=== PATIENT | male | born 1930 | race Caucasian/White ===

== ENCOUNTER 2017-06-19 05:41 | Day surgery (SDC) | payer MEDICARE, OTHER ==
[2017-06-19] MEDS ORDERED: Midazolam 1 MG/ML 2 ML SDV IV ONE ×4 (05:42→07:14)
[2017-06-19] MEDS ORDERED: fentaNYL 100 MCG/2 ML SDV IV ONE ×3 (05:42→07:12)
[2017-06-19] MEDS ORDERED: Sodium Chloride 0.9% 10 ML Syringe FLUSH PRN (06:00)
[2017-06-19] MEDS ORDERED: Dextrose 5%-0.45% NaCl 1,000 ML IV SCH (06:00)
[2017-06-19] MEDS ORDERED: Midazolam 1 MG/ML 2 ML SDV ONE (06:15)
[2017-06-19] MEDS ORDERED: fentaNYL 100 MCG/2 ML SDV ONE (06:17)
--- NOTE | 2017-06-19 08:04 | OR ---
DATE: 06/19/2017 PROCEDURE: Total colonoscopy and multiple cold snare polypectomies. INSTRUMENT USED: CF-H180AL Olympus video colonoscope. PREMEDICATIONS: Fentanyl 100 mcg intravenous, Versed 2 mg intravenous. Nasal O2 cannula. The procedure was done under pulse oximetry, BP recording, and cmo & president. 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 Surveillance colonoscopic examination is done for detection of any polypoid lesions and removal, endoscopic hemostasis therapy if needed. DESCRIPTION OF PROCEDURE: Initial rectal exam was unremarkable. Rigid anoscopy showed pigmented rectal mucosa. The colonoscope was passed with ease. In the distal descending colon at around 30 cm proximal to anal verge, 1 cm sized bilobed sessile polyp was noted, photographs were taken. Cold snare piecemeal polypectomy was done, the tissues were retrieved and sent for histopathology. The scope was passed with ease up to the ileocecal area, photographs were taken of the cecum, melanosis coli noted. No stricture. No vascular ectasia. No large isolated ulcerations seen. No evidence of diffuse inflammatory bowel disease in the form of friability, contact bleeding, or ulcerations. Probing the proximal sides of folds and flexures, using adequate distention and clearing up the stool material, withdrawal of the scope was made. In the transverse colon, multiple 3-mm sized benign-appearing polyps, 3 in number were noted. Cold snare polypectomies were done. The tissues were retrieved and sent for histopathology. No bleeding was noted from any of the visualized areas at the completion of examination. IMPRESSION: 1. Melanosis coli. 2. Multiple colonic polyps. The patient tolerated the procedure well. [facility] /[id number]
--- NOTE | 2017-06-19 09:19 | LETTER ---
06/19/2017 Hyacinth Waters MD [facility] [address] [place] [address] RE: ROBERTRAQUEL Owusu Geoff : [address] Waters: Mr. Raquel Saldivar had colonoscopic examination done this morning and he tolerated the procedure well. I herewith send a copy of the endoscopy note and photographs for your review Thank you. Sincerely, [facility] /[id number]
[2017-06-19 09:58] VITALS: BP 165/85
== END 2017-06-19 09:40 | disposition home or self-care (01) ==
LOC: DL.ENDO 05:41
PROVIDERS: ATTEND Internal Medicine Gastroenterology
DX: Z12.11 Encounter for screening for malignant neoplasm of colon (principal); D12.3 Benign neoplasm of transverse colon; D12.4 Benign neoplasm of descending colon; Z85.038 Personal history of other malignant neoplasm of large intestine; K63.89 Other specified diseases of intestine; E11.22 Type 2 diabetes mellitus with diabetic chronic kidney disease; I12.9 Hypertensive chronic kidney disease with stage 1 through stage 4 chronic kidney disease, or unspecified chronic kidney disease; N18.9 Chronic kidney disease, unspecified; Z98.890 Other specified postprocedural states; D64.9 Anemia, unspecified; Z79.82 Long term (current) use of aspirin; Z79.84 Long term (current) use of oral hypoglycemic drugs; Z79.899 Other long term (current) drug therapy
CPT/HCPCS: 45385; 88305; J2250; J3010; J7042

== ENCOUNTER 2019-07-06 09:00 | Day surgery (SDC) | payer MEDICARE, OTHER ==
[2019-07-06] MEDS ORDERED: Dexamethasone 4 MG/ML SDV IV ONE (09:01)
[2019-07-06] MEDS ORDERED: Midazolam 1 MG/ML 2 ML SDV IV ONE (09:01)
[2019-07-06] MEDS ORDERED: Lidocaine 1% 30 ML SDV ONE (10:03)
[2019-07-06] MEDS ORDERED: Tetracaine HCl/PF 0.5% 4 ML Bottle EYERT ONE (10:03)
[2019-07-06] MEDS ORDERED: Povidone-Iodine 5% Sterile Ophth Soln 30 ML Bottle EYERT ONE ×2 (10:04→10:15)
[2019-07-06] MEDS ORDERED: Dexamethasone/Neomycin/Polymyxin B Ophth Oint 3.5 GM Tube EYERT ONE (10:04)
[2019-07-06] MEDS ORDERED: Apraclonidine 0.5% Ophth Soln 5 ML Bot EYERT ONE (10:04)
[2019-07-06] MEDS ORDERED: Diclofenac Sodium 0.1% Ophth Soln 5 ML Bottle EYERT ONE (10:04)
[2019-07-06] MEDS ORDERED: Chondroitin Sulfate/Hyaluronate Sodium Ophth Inj 0.75 ML Syringe EYERT ONE (10:05)
[2019-07-06] MEDS ORDERED: Vancomycin 500 MG SDV EYERT ONE (10:05)
[2019-07-06] MEDS ORDERED: Balanced Salt Solution Ophth Irrig 500 ML Bottle IOCULAR ONE (10:05)
[2019-07-06] MEDS ORDERED: Moxifloxacin 0.5% Ophth Soln 3 ML Bottle EYERT ONE (10:15)
[2019-07-06] MEDS ORDERED: Cataract Ophth Solution EYERT ONE (10:15)
[2019-07-06] MEDS ORDERED: Phenylephrine 10% Ophth Soln 5 ML Bot EYERT ONE (10:15)
[2019-07-06] MEDS ORDERED: Proparacaine 0.5% Ophth Soln 15 ML Bottle EYERT ONE (10:15)
[2019-07-06] MEDS ORDERED: Acetaminophen 325 MG Tab PO PRN (10:15)
[2019-07-06] MEDS ORDERED: Ondansetron 4 MG/2 ML SDV IVPUSH PRN (10:15)
[2019-07-06] MEDS ORDERED: Timolol Maleate 0.5% Ophth Soln 5 ML Bottle EYERT ONE (10:15)
[2019-07-06] MEDS ORDERED: Sodium Chloride 0.9% 10 ML Syringe FLUSH PRN (10:15)
[2019-07-06] MEDS ORDERED: Phenylephrine 10% Ophth Soln 5 ML Bot EYERT PRN (10:15)
[2019-07-06 11:06] VITALS: BP 159/67; PULSE 58
--- NOTE | 2019-07-07 09:43 | OR ---
DATE: 07/06/2019 PREOPERATIVE DIAGNOSIS: Visually significant mixed cataract, right eye. POSTOPERATIVE DIAGNOSIS: Visually significant mixed cataract, right eye. PROCEDURE: Extracapsular cataract extraction with intraocular lens implant, right eye. ANESTHESIA: Topical/local MAC. COMPLICATIONS: None. INDICATION: Mr. Saldivar was seen in the clinic. Examination revealed visually significant mixed cataract. He is symptomatic and requests cataract surgery. I explained options, offered cataract, surgery and I explained risks including the potential for infection, retinal detachment, loss of vision, need for additional surgery, amongst others. We discussed implant options. He has requested a monofocal implant. OPERATIVE DESCRIPTION: After informed consent was obtained and the risks, benefits, and alternatives were explained, the patient was brought to the operative suite and topical anesthesia was administered. The patient was then prepped and draped in the sterile fashion and attention was placed on the right eye. A sterile lid speculum was placed into the right eye to allow operative exposure. A full-thickness paracentesis was made in the temporal portion of the operative eye. Preservative-free lidocaine 0.1 mL was injected into the anterior chamber followed by viscoelastic. A full-thickness corneal incision was then made into the anterior chamber. A bent needle cystotome was used to create a small ronal in the anterior capsule. The capsulorrhexis forceps was then used to create a 360-degree curvilinear capsulorrhexis. The nucleus was then removed using a phacoemulsification handpiece and the remaining cortical material was then removed with irrigation and aspiration handpiece. Following removal of the cortical material, the capsular bag was then inspected and noted to be free of any holes or tears. Viscoelastic was then injected into the capsular bag and the intraocular lens was inserted into the capsular bag. The viscoelastic material was then removed from both the anterior and posterior chambers and from behind the IOL. The lens and capsular bag were then reinspected. The IOL was well centered and the capsular bag intact. The wound and paracentesis sites were inspected and hydrated with balanced saline solution. Both were found to be self-sealing. The intraocular pressure was assessed digitally and found to be within normal range. A good red reflex was noted at the completion of the procedure. No complications occurred during the operation. At the completion of the procedure, Maxitrol, Voltaren, and Iopidine drops were placed into the operative eye. A sterile eye shield was placed over the operative eye and the patient was transported to the postoperative recovery area having tolerated the procedure well. Postoperative instructions were given along with a postoperative appointment. The patient was advised to call with any questions or concerns. [facility] /[id number]
== END 2019-07-06 11:13 | disposition home or self-care (01) ==
LOC: DL.SDS 09:00
PROVIDERS: ATTEND Ophthalmology
DX: E11.36 Type 2 diabetes mellitus with diabetic cataract (principal); H25.811 Combined forms of age-related cataract, right eye; H52.223 Regular astigmatism, bilateral; H43.813 Vitreous degeneration, bilateral; H52.03 Hypermetropia, bilateral; H90.3 Sensorineural hearing loss, bilateral; E11.319 Type 2 diabetes mellitus with unspecified diabetic retinopathy without macular edema; E78.5 Hyperlipidemia, unspecified; I25.10 Atherosclerotic heart disease of native coronary artery without angina pectoris; I25.2 Old myocardial infarction; I12.9 Hypertensive chronic kidney disease with stage 1 through stage 4 chronic kidney disease, or unspecified chronic kidney disease; N18.4 Chronic kidney disease, stage 4 (severe); D63.1 Anemia in chronic kidney disease; F32.9 Major depressive disorder, single episode, unspecified; K21.9 Gastro-esophageal reflux disease without esophagitis; Z98.42 Cataract extraction status, left eye; Z96.1 Presence of intraocular lens; Z95.1 Presence of aortocoronary bypass graft; Z85.038 Personal history of other malignant neoplasm of large intestine; Z87.891 Personal history of nicotine dependence; Z79.82 Long term (current) use of aspirin; Z79.899 Other long term (current) drug therapy
CPT/HCPCS: 00142; 66984; A9270; J1100; J2001; J2250; J3370; V2632

== ENCOUNTER 2020-05-22 13:11 | Emergency (ER) | payer MEDICARE, OTHER ==
[2020-05-22 13:33] VITALS: BP 169/94; PULSE 82
--- NOTE | 2020-05-22 13:39 | EDM.PDOC ---
ED HPI GENERAL MEDICAL PROBLEM - General Chief Complaint: General Stated Complaint: BEEN IN BED FOR TWO WEEKS/CANNOT EAT/OFF BALANCE Time Seen by Provider: 05/22/20 13:37 Source of Information: Reports: Patient, Old Records, RN, RN Notes Reviewed History Limitations: Reports: No Limitations - History of Present Illness INITIAL COMMENTS - FREE TEXT/NARRATIVE: Pt presents to ER from home by POV with c/o one weeks duration of generalized weakness, muscle aches, chills, dizziness, and loss of taste. Pt denies chest pain, cough, shortness of breath, or fevers. He has been making some urine but less than normal. He has been following with Dr. Aponte for CKD and anemia. Denies any known COVID exposures. Pt is unsure of Hx, most Hx obtained from [facility] records. Onset: Gradual Duration: Constant Location: Reports: Generalized Severity: Severe Improves with: Reports: None Worsens with: Reports: None Associated Symptoms: Reports: No Other Symptoms - Related Data Allergies Allergy/AdvReac Type Severity Reaction Status Date / Time No Known Allergies Allergy Verified 05/22/20 13:31 Home Meds: Home Meds Acetaminophen [Tylenol] 325 - 750 mg PO Q4H PRN 06/18/17 [History] Aspirin [Halfprin] 81 mg PO DAILY 06/18/17 [History] Famotidine [Pepcid] 40 mg PO DAILY 06/18/17 [History] Losartan Potassium [Cozaar] 50 mg PO DAILY 06/18/17 [History] Nitroglycerin [Nitrostat] 0.4 mg SL ASDIRECTED PRN 06/18/17 [History] Verapamil HCl [Verapamil] 240 mg PO BID 06/18/17 [History] atorvaSTATin Calcium [Atorvastatin Calcium] 10 mg PO BEDTIME 06/18/17 [History] metFORMIN [Glucophage] 500 mg PO BIDMEALS 06/18/17 [History] carvediloL [Coreg] 6.25 mg PO BID 08/26/18 [History] predniSONE [Prednisone] 5 mg PO TID 06/28/19 [History] Calcium Acetate [PhosLo] 1,334 mg PO TID 05/22/20 [History] Cholecalciferol (Vitamin D3) [Vitamin D3] 1,000 unit PO DAILY 05/22/20 [History] Ergocalciferol (Vitamin D2) [Vitamin D2] 50,000 unit PO WEEKLY 05/22/20 [History] Furosemide [Lasix] 60 mg PO DAILY 05/22/20 [History] Sodium Bicarbonate 1,300 mg PO BID 05/22/20 [History] calcitrioL [Rocaltrol] 1 mcg PO DAILY 05/22/20 [History] hydrALAZINE [Apresoline] 150 mg PO BID 05/22/20 [History] Past Medical History HEENT History: Reports: Cataract, Hard of Hearing, Other (See Below) Other HEENT History: dry eyes. hx of lypoma over right eye and neck Cardiovascular History: Reports: CAD, High Cholesterol, Hypertension Respiratory History: Reports: None Gastrointestinal History: Reports: GERD Genitourinary History: Reports: Chronic Renal Insuffiency, Urinary Incontinence, Other (See Below) Other Genitourinary History: right nephrectomy Musculoskeletal History: Reports: Arthritis Neurological History: Reports: None Psychiatric History: Reports: Depression Endocrine/Metabolic History: Reports: Diabetes, Type II Hematologic History: Reports: Anemia, Iron Deficiency Immunologic History: Reports: None Oncologic (Cancer) History: Reports: Colon, Renal Dermatologic History: Reports: None - Infectious Disease History Infectious Disease History: Reports: Chicken Pox, Influenza, Mumps, Other (See Below) Other Infectious Disease History: MALARIA age 20 and 22 - Past Surgical History Head Surgeries/Procedures: Reports: None HEENT Surgical History: Reports: Cataract Surgery Cardiovascular Surgical History: Reports: None, Coronary Artery Bypass Other Cardiovascular Surgeries/Procedures: triple bypass in GI Surgical History: Reports: None, Other (See Below) Other GI Surgeries/Procedures: colectomy for colon cancer (patient denies) Female Surgical History: Reports: Nephrectomy Male Surgical History: Reports: Nephrectomy Neurological Surgical History: Reports: None Social & Family History - Family History Family Medical History: Noncontributory - Caffeine Use Caffeine Use: Reports: Coffee Caffeine Use Comment: 64OZ DAILY - Living Situation & Occupation Living situation: Reports: , with Spouse Occupation: Retired ED ROS GENERAL - Review of Systems Review Of Systems: Comprehensive ROS is negative, except as noted in HPI. ED EXAM, GENERAL - Physical Exam Exam: See Below Exam Limited By: No Limitations General Appearance: Alert, No Apparent Distress, Other (Frail, elderly chronically ill appearing male) Nose: Normal Inspection Throat/Mouth: Normal Voice, No Airway Compromise Head: Atraumatic, Normocephalic Neck: Normal Inspection, Non-Tender Respiratory/Chest: No Respiratory Distress, Lungs Clear, No Accessory Muscle Use, Chest Non-Tender, Decreased Breath Sounds Cardiovascular: Regular Rate, Rhythm, No Edema GI/Abdominal: Normal Bowel Sounds, Soft, Non-Tender Back Exam: Normal Inspection Extremities: Normal Inspection, Non-Tender, No Pedal Edema Neurological: Alert, Oriented, Normal Cognition, No Motor/Sensory Deficits Psychiatric: Normal Affect, Normal Mood Skin Exam: Warm, Dry, Intact, Normal Color, No Rash Course - Vital Signs Last Recorded V/S: Last Vital Signs Temp 97.3 F 05/22/20 13:31 Pulse 82 05/22/20 13:31 Resp 16 05/22/20 13:31 BP 169/94 H 05/22/20 13:31 Pulse Ox 99 05/22/20 13:31 - Orders/Labs/Meds Orders: Active Orders 24 hr Category Date Time Status Peripheral IV Care [RC] . DIRECTED Care 05/22/20 13:57 Active CULTURE BLOOD [BC] Stat Lab 05/22/20 13:54 Results CULTURE BLOOD [BC] Stat Lab 05/22/20 13:57 Ordered CULTURE STREP A CONFIRMATION [RM] Stat Lab 05/22/20 14:02 Results STREP SCRN A RAPID W CULT CONF [RM] Stat Lab 05/22/20 14:02 Results UA RFX MEGHAN AND CULT IF INDIC [URIN] Stat Lab 05/22/20 13:57 Ordered Sodium Chloride 0.9% [Saline Flush] Med 05/22/20 13:56 Active 10 ml FLUSH ASDIRECTED PRN Blood Culture x2 Reflex Set [OM.PC] Stat Oth 05/22/20 13:56 Ordered Isolation [COMM] Routine Oth 05/22/20 13:57 Active Peripheral IV Insertion Adult [OM.PC] Stat Oth 05/22/20 13:56 Ordered Medication Orders Sodium Chloride (Saline Flush) 10 ml FLUSH ASDIRECTED PRN PRN Reason: Keep Vein Open Labs: Laboratory Tests 05/22/20 05/22/20 05/22/20 Range/Units 13:54 13:54 13:54 WBC 9.1 (5.0-10.0) 10^3/uL RBC 3.72 L (4.6-6.2) 10^6/uL Hgb 10.9 L (14.0-18.0) g/dL Hct 35.2 L (40.0-54.0) % MCV 94.6 (80-100) fL MCH 29.3 (27.0-34.0) pg MCHC 31.0 L (33.0-35.0) g/dL Plt Count 180 (150-450) 10^3/uL Neut % (Auto) 85.8 H (42.2-75.2) % Lymph % (Auto) 4.8 L (20.5-50.1) % [place] % (Auto) 8.8 H (2-8) % Eos % (Auto) 0.5 L (1.0-3.0) % Baso % (Auto) 0.1 (0.0-1.0) % Sodium 141 (136-145) mmol/L Potassium 4.0 (3.5-5.1) mmol/L Chloride 101 (98-107) mmol/L Carbon Dioxide 29 (21-32) mmol/L Anion Gap 15.0 H (7-13) mEq/L BUN 93 H (7-18) mg/dL Creatinine 9.13 H* (0.70-1.30) mg/dL Est Cr Clr Drug Dosing 5.33 mL/min Estimated GFR (MDRD) 6 BUN/Creatinine Ratio 10.2 (No establ ref range) Glucose 128 H (74-99) mg/dL Lactic Acid 1.3 (0.4-2.0) mmol/L Calcium 12.9 H (8.5-10.1) mg/dL Total Bilirubin 0.3 (0.2-1.0) mg/dL AST 14 L (15-37) U/L ALT 15 L (16-63) U/L Alkaline Phosphatase 58 (46-116) U/L C-Reactive Protein 0.5 (0.0-0.9) mg/dL B-Natriuretic Peptide 2460 H (0-100) pg/ml Total Protein 7.2 (6.4-8.2) g/dL Albumin 3.5 (3.4-5.0) g/dL Globulin 3.7 Albumin/Globulin Ratio 0.9 COVID-19 (YARI) (NEGATIVE) 05/22/20 Range/Units 14:02 WBC (5.0-10.0) 10^3/uL RBC (4.6-6.2) 10^6/uL Hgb (14.0-18.0) g/dL Hct (40.0-54.0) % MCV (80-100) fL MCH (27.0-34.0) pg MCHC (33.0-35.0) g/dL Plt Count (150-450) 10^3/uL Neut % (Auto) (42.2-75.2) % Lymph % (Auto) (20.5-50.1) % [place] % (Auto) (2-8) % Eos % (Auto) (1.0-3.0) % Baso % (Auto) (0.0-1.0) % Sodium (136-145) mmol/L Potassium (3.5-5.1) mmol/L Chloride (98-107) mmol/L Carbon Dioxide (21-32) mmol/L Anion Gap (7-13) mEq/L BUN (7-18) mg/dL Creatinine (0.70-1.30) mg/dL Est Cr Clr Drug Dosing mL/min Estimated GFR (MDRD) BUN/Creatinine Ratio (No establ ref range) Glucose (74-99) mg/dL Lactic Acid (0.4-2.0) mmol/L Calcium (8.5-10.1) mg/dL Total Bilirubin (0.2-1.0) mg/dL AST (15-37) U/L ALT (16-63) U/L Alkaline Phosphatase (46-116) U/L C-Reactive Protein (0.0-0.9) mg/dL B-Natriuretic Peptide (0-100) pg/ml Total Protein (6.4-8.2) g/dL Albumin (3.4-5.0) g/dL Globulin Albumin/Globulin Ratio COVID-19 (YARI) Negative (NEGATIVE) Meds: Medications Generic Name Dose Route Start Last Admin Trade Name Freq PRN Reason Stop Dose Admin Sodium Chloride 10 ml 05/22/20 13:56 Saline Flush FLUSH ASDIRECTED PRN Keep Vein Open Departure - Departure Time of Disposition: 15:00 Disposition: DC/Tfer to Acute Hospital 02 Condition: Serious Clinical Impression: CKD (chronic kidney disease) Qualifiers: Chronic kidney disease stage: stage 5, not on chronic dialysis Qualified Code(s): N18.5 - Chronic kidney disease, stage 5 - Discharge Information *PRESCRIPTION DRUG MONITORING PROGRAM REVIEWED*: Not Applicable *COPY OF PRESCRIPTION DRUG MONITORING REPORT IN PATIENT STORM: Not Applicable Forms: ED Department Discharge, Interfacility Transfer [facility] Sepsis Event Note (ED) - Evaluation Sepsis Screening Result: No Definite Risk - Focused Exam Vital Signs: Vital Signs Temp Pulse Resp BP Pulse Ox 05/22/20 13:31 97.3 F 82 16 169/94 H 99 - My Orders Last 24 Hours: My Active Orders 05/22/20 13:54 CULTURE BLOOD [BC] Stat 05/22/20 13:56 Sodium Chloride 0.9% [Saline Flush] 10 ml FLUSH ASDIRECTED PRN Blood Culture x2 Reflex Set [OM.PC] Stat Peripheral IV Insertion Adult [OM.PC] Stat 05/22/20 13:57 Peripheral IV Care [RC] . DIRECTED CULTURE BLOOD [BC] Stat UA RFX MEGHAN AND CULT IF INDIC [URIN] Stat Isolation [COMM] Routine 05/22/20 14:02 CULTURE STREP A CONFIRMATION [RM] Stat STREP SCRN A RAPID W CULT CONF [RM] Stat - Assessment/Plan Last 24 Hours: My Active Orders 05/22/20 13:54 CULTURE BLOOD [BC] Stat 05/22/20 13:56 Sodium Chloride 0.9% [Saline Flush] 10 ml FLUSH ASDIRECTED PRN Blood Culture x2 Reflex Set [OM.PC] Stat Peripheral IV Insertion Adult [OM.PC] Stat 05/22/20 13:57 Peripheral IV Care [RC] . DIRECTED CULTURE BLOOD [BC] Stat UA RFX MEGHAN AND CULT IF INDIC [URIN] Stat Isolation [COMM] Routine 05/22/20 14:02 CULTURE STREP A CONFIRMATION [RM] Stat STREP SCRN A RAPID W CULT CONF [RM] Stat
[2020-05-22] MEDS ORDERED: Sodium Chloride 0.9% 10 ML Syringe FLUSH PRN (13:56)
== END 2020-05-22 15:36 ==
LOC: DL.ED 13:11
DX: I12.0 Hypertensive chronic kidney disease with stage 5 chronic kidney disease or end stage renal disease (principal); N18.5 Chronic kidney disease, stage 5; E11.22 Type 2 diabetes mellitus with diabetic chronic kidney disease; I25.10 Atherosclerotic heart disease of native coronary artery without angina pectoris; E78.00 Pure hypercholesterolemia, unspecified; K21.9 Gastro-esophageal reflux disease without esophagitis; M19.90 Unspecified osteoarthritis, unspecified site; F32.9 Major depressive disorder, single episode, unspecified; Z79.82 Long term (current) use of aspirin; Z79.84 Long term (current) use of oral hypoglycemic drugs; Z79.899 Other long term (current) drug therapy; Z20.828 Contact with and (suspected) exposure to other viral communicable diseases
CPT/HCPCS: 36415; 80053; 83605; 83880; 85025; 86140; 87040; 87081; 87430; 87804; 99285; U0002

== ENCOUNTER 2022-03-16 15:52 | Emergency (ER) | payer MEDICARE, OTHER ==
[2022-03-16] MEDS ORDERED: HYDROmorphone 0.5 MG/0.5 ML Syringe IVPUSH ONE (16:21)
[2022-03-16 16:24] VITALS: BP 155/59; PULSE 78
[2022-03-16 17:19] LABS: ANION GAP 18.9 mEq/L (7-13); CHLORIDE,CL 96 mmol/L (98-107); SODIUM,NA 144 mmol/L (136-145)
[2022-03-16 17:25] LABS: ESTIMATED GFR 8 mL/min (>=60)
== END 2022-03-16 19:55 ==
LOC: DL.ED 15:52
DX: K80.43 Calculus of bile duct with acute cholecystitis with obstruction (principal); K85.90 Acute pancreatitis without necrosis or infection, unspecified; E11.22 Type 2 diabetes mellitus with diabetic chronic kidney disease; I12.9 Hypertensive chronic kidney disease with stage 1 through stage 4 chronic kidney disease, or unspecified chronic kidney disease; N18.9 Chronic kidney disease, unspecified; D63.1 Anemia in chronic kidney disease; I25.10 Atherosclerotic heart disease of native coronary artery without angina pectoris; E78.00 Pure hypercholesterolemia, unspecified; Z79.82 Long term (current) use of aspirin; Z79.899 Other long term (current) drug therapy; Z20.822 Contact with and (suspected) exposure to COVID-19
CPT/HCPCS: 36415; 74176; 80053; 83605; 83690; 85025; 86140; 87040; 87077; 87186; 96374; 99285; J1170; U0002